=== PATIENT | male | born 1995 | race Hispanic/Latino ===

== ENCOUNTER 2023-06-30 19:56 | Emergency (ER) | payer OTHER ==
[~2023-06-30] VITALS: Ht 185.4 cm; Wt 94.3 kg
[2023-06-30 21:00] LABS: BASOPHILS # (AUTO) 0.04 K/uL (0.00-0.20); BASOPHILS % (AUTO) 0.4 % (0.0-5.0); EOSINOPHILS # (AUTO) 0.22 K/uL (0.00-0.70); EOSINOPHILS % (AUTO) 2.1 % (0.0-8.0); HEMATOCRIT 42.4 % (42-54); IMMATURE GRANULOCYTE ABSOLUTE 0.02 K/uL (0-1); LYMPHOCYTES # (AUTO) 3.2 K/uL (1.0-4.8); LYMPHOCYTES % (AUTO) 30.9 % (21.0-51.0); MEAN CORPUSCULAR HEMOGLOBIN 27.8 pg (27.0-33.0); MEAN CORPUSCULAR HGB CONC 33.5 g/dL (32.0-36.0); MEAN CORPUSCULAR VOLUME 83.1 fL (79-99); MONOCYTES # (AUTO) 0.7 K/uL (0.1-1.0); MONOCYTES % (AUTO) 6.9 % (3.0-13.0); NEUTROPHILS # (AUTO) 6.1 K/uL (1.8-7.7); NEUTROPHILS % (AUTO) 59.5 % (40.0-77.0); PLATELET COUNT (AUTO) 291 K/uL (130-400); RED CELL DISTRIBUTION WIDTH 12.1 % (11.0-15.5); WHITE BLOOD COUNT (AUTO) 10.2 K/uL (4.8-10.8)
[2023-06-30 21:09] LABS: POTASSIUM 3.7 mmol/L (3.5-5.1)
[2023-06-30 21:14] LABS: ALBUMIN 4.1 g/dL (3.5-5.0); BILIRUBIN,TOTAL 0.5 mg/dL (0.2-1.0); TOTAL PROTEIN, SERUM 8.7 g/dL (6.0-8.3)
[2023-06-30] MEDS ORDERED: IOHEXOL-350 75 ML VIAL IV ONE (21:19)
[2023-06-30] MEDS ORDERED: IBUP-2070 PO (22:16)
[2023-06-30 22:25] VITALS: BP 136/78; PULSE 72; RESP 16; O2SAT 99
== END 2023-06-30 22:28 | disposition home or self-care (01) ==
LOC: EDH 19:56
DX: R59.9 Enlarged lymph nodes, unspecified (principal)
CPT/HCPCS: 99285; 70491; 80053; 85025; 36415; Q9967